=== PATIENT | female | born 2000 | race Caucasian/White ===

== ENCOUNTER 2021-03-20 08:51 | Emergency (ER) | payer BC, SELFPAY ==
[2021-03-20 09:05] VITALS: BP 108/49; PULSE 84; RESP 16; TEMP 37.1; O2SAT 99
--- NOTE | 2021-03-20 09:56 | ED.GENADULT ---
HPI - General Adult General Chief complaint: Nausea/Vomiting/Diarrhea Stated complaint: vomiting Source: patient Mode of arrival: ambulatory Limitations: no limitations History of Present Illness HPI narrative: Patient is a 20-year-old female who presents to [facility] via [facility]OV for evaluation of nausea and vomiting that began last night. Patient reports vomiting began at approximately 3 AM. She reports vomiting at least every 45 minutes since onset. Initially her vomitus contained undigested food and alcohol. She is now vomiting bilious contents. Denies taking OTC meds for symptoms. Nothing improves symptoms. The smell of food and moving worsens symptoms. Of note, patient reports she went to a concert last night and began drinking at 6:30 PM and finished at 11 PM. She states she had 2.5 double cocktails referring to a large sized drink. She states she does not drink frequently therefore is unable to tolerate large amounts of alcohol. Related Data Allergies Allergy/AdvReac Type Severity Reaction Status Date / Time No Known Allergies Allergy Verified 03/20/21 10:20 Review of Systems Review of Systems: Pertinent negatives increased thirst, fever, chills, sweats, malaise, poor p.o. intake, change in appetite, recent weight loss, lymphadenopathy, headache, sore throat, dizziness, LOC, urinary sxs, back/flank pain, extremity paresthesias, blood in stool, abdominal pain, diarrhea, constipation, belching, bloating, dry mouth, heartburn, jaundice, vomiting blood, confusion, seizure activity, and skin color changes. PMFSH Comments I have reviewed and agree with the patient's past medical, surgical, social, and family hx as documented by the RN. There is no relevant family history pertinent to the presenting complaint. Exam Narrative: GENERAL: Well-appearing, well-nourished, and in no acute distress. HEAD: Normocephalic, atraumatic. No sinus tenderness or facial swelling appreciated. EYES: PERRLA and EOMI. No evidence of erythema, swelling, or drainage. ENT: Mucous membranes dry and pink. Uvula is midline without erythema and swelling. No evidence of petechial rash, cobblestoning, lesions, ulcers, erythema, swelling, exudates, peritonsillar abscess, tenting, or drooling. Breath odor and voice normal. NECK: Supple. No Lymphadenopathy or nuchal rigidity appreciated. CHEST: Bilateral lung ga are clear to auscultation. No respiratory distress. No evidence of cough or pleuritic cp upon examination. HEART: Regular rate and rhythm. No murmur, gallop, or rub heard. ABDOMEN: Soft, nontender, nondistended, normal active bowel sounds in all quadrants. No guarding. No rebound tenderness. No pulsatile or palpable abdominal mass(es). No CVAT EXTREMITIES: Normal range of motion. No edema. SKIN: Warm, dry, no rash. Excellent skin turgor. NEURO: No focal deficits. Alert and oriented x3. Course Vital Signs Vital signs: Vital Signs Temperature 98.7 F 03/20/21 09:05 Pulse Rate 84 03/20/21 09:05 Respiratory Rate 16 03/20/21 09:05 Blood Pressure 108/49 L 03/20/21 09:05 Pulse Oximetry 99 03/20/21 09:05 Temperature 98.7 F 03/20/21 09:05 Pulse Rate 84 03/20/21 09:05 Respiratory Rate 16 03/20/21 09:05 Blood Pressure 108/49 L 03/20/21 09:05 Pulse Oximetry 99 03/20/21 09:05 Medical Decision Making Differential Diagnosis Differential Diagnosis: Gastroenteritis, nausea, vomiting, Medical Records Medical records reviewed: Yes I reviewed the external patient's medical records. Vital Signs Vital Signs: Vital Signs Temperature 98.7 F 03/20/21 09:05 Pulse Rate 84 03/20/21 09:05 Respiratory Rate 16 03/20/21 09:05 Blood Pressure 108/49 L 03/20/21 09:05 Pulse Oximetry 99 03/20/21 09:05 Temperature 98.7 F 03/20/21 09:05 Pulse Rate 84 03/20/21 09:05 Respiratory Rate 16 03/20/21 09:05 Blood Pressure 108/49 L 03/20/21 09:05 Pulse Oximetry 99 03/20/21 09:05 Criti
[2021-03-20] MEDS: ONDANSETRON HCL ODT 4 MG TABLET 8 MG PO (09:58)
== END 2021-03-20 11:37 | disposition home or self-care (01) ==
PROVIDERS: Emergency Provider Nurse Practitioner Family
DX: F10.10 Alcohol abuse, uncomplicated (principal); R11.2 Nausea with vomiting, unspecified
CPT/HCPCS: 99213; A9270; G0463